=== PATIENT | female | born 1955 | race Caucasian/White ===

== ENCOUNTER 2016-03-08 10:28 | Emergency (ER) | payer MEDICARE, BC ==
[~2016-03-08] VITALS: Ht 165.1 cm; Wt 73.0 kg
[~2016-03-08 10:28] MED LIST changes: -KEPP10002 PO; -LEVO125T4 PO; -NAPR500 PO; -NORC5TAB PO; -WALKER/ADULT/FO1 MIS
[2016-03-08 10:33] VITALS: BP 99/69; PULSE 79; RESP 16; TEMP 99; O2SAT 99
[2016-03-08] MEDS ORDERED: KEPP10002 PO (10:59)
[2016-03-08] MEDS ORDERED: LEVO125T4 PO (10:59)
--- NOTE | 2016-03-08 11:14 | PD ---
HPI Chief Complaint: Injury Time Seen by Provider: 11:10 Travel History International Travel<30 days: No Contact w/Intl Traveler<30days: No Traveled to known affect area: No History of Present Illness HPI Patient comes in for evaluation of right ankle and foot pain that began yesterday after tripping fall. 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 Patient states that this caused her to stumble yesterday causing injury. Patient uncertain exactly if she twisted it landed on it or exactly what happened. Patient having throbbing aching pain in the lateral aspect of the right ankle and radiates proximally since yesterday. Patient states she took some Advil yesterday seemed to help some. Pain is worse with standing and palpation. Denies any numbness or tingling. Denies hitting her head or loss of consciousness. Patient states she has not ate anything yet today. 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) Cardiovascular Problems: No Chemotherapy: No COPD: No Cerebrovascular Accident: No Diabetes: No Diminished Hearing: No Endocrine: Yes Gastrointestinal Disorders: Yes (NAUSEA DUE TO NECK PAIN) Glaucoma: No Genitourinary: No Headaches: Yes Hepatitis: No Hiatal Hernia: No Hypertension: No Immune Disorder: No Musculoskeletal: Yes (CERVICAL & LUMBAR DISC PROBS., ARTHRITIS) Neurologic: Yes (SEIZURES (CONGENITAL)) Psychiatric: Yes (DEPRESSION) Reproductive: No Respiratory: Yes (SLEEP APNEA- NO C-PAP) Immunizations Current: Yes Migraines: Yes Radiation Therapy: No Seizures: Yes Sleep Apnea: Yes Thyroid Disease: Yes Tetanus Vaccination: < 5 Years Influenza Vaccination: Yes Menopausal: Yes Past Surgical History Abdominal Surgery: No AICD: No Body Medical Devices: CERVICAL HARDWARE Cardiac Surgery: No Ear Surgery: No Endocrine Surgery: No Eye Surgery: No Genitourinary Surgery: No Gynecologic Surgery: Yes (RAD. VULVECTOMY) Joint Replacement: No Neurologic Surgery: Yes (CERVICAL SPINE C5-6 FUSION X 2) Oral Surgery: Yes (WISDOM TEETH EXTRACT., TONSILLECTOMY) Pacemaker: No Thoracic Surgery: No Other Surgery: Yes (2 NECK AND LEG) Social History Alcohol Use: No Tobacco Use: Yes (1 PPD) Substance Use: No Allergies-Medications (Allergen,Severity, Reaction): Coded Allergies: Contrast Media (Verified Allergy, Severe, 03/08/16) Cipro (Verified Allergy, Intermediate, PT STATES SHE IS NOT ALLERGIC, 03/08) Reported Meds & Prescriptions Reported Meds & Active Scripts Active Walker/Adult/Folding (Device) 1 Mis Mis 1 Ea .ROUTE DIRECTED [place] (Hydrocodone-Acetaminophen) 5-325 mg Tab 1 Tab PO Q8HR PRN Naprosyn (Naproxen) 500 Mg Tab 500 Mg PO Q12HR PRN Reported Levothyroxine (Levothyroxine Sodium) 125 Mcg Tab 125 Mcg PO DAILY Keppra (Levetiracetam) 1,000 Mg Tab 1,000 Mg PO BID Review of Systems Except as stated in HPI: all other systems reviewed are Neg Physical Exam Narrative GENERAL: Well-developed, well nourished, in no acute distress, and non-ill appearing. SKIN: Warm and dry. Discoloration noted aspect right ankle and dorsal aspect of right foot. HEAD: Atraumatic. Normocephalic. EYES: Pupils equal and round. EOMI. No scleral icterus. No injection or drainage. ENT: No nasal bleeding or discharge. Mucous membranes pink and moist. NECK: Trachea midline. Supple. No nuclear rigidity. CARDIOVASCULAR: Dorsal pulses 2+ intact bilaterally. Capillary refill is 2 seconds. RESPIRATORY: No accessory muscle use. No respiratory distress. MUSCULOSKELETAL: No obvious deformities. No clubbing. No cyanosis. Soft tissue swelling noted right lateral ankle and dorsal aspect foot. Full range of motion. Ankle: Neagative anterior draw and Noble test. Negative Kady's sign. No laxity noted with passive inversion and eversion of BL ankles. Negative squeeze test. Pulses equal BL distal to injury. Capillary refill less than 2 seconds distal to injury and equal BL. Sensation equal BL 1st web space. FROM of toes distal to injury and equal BL. NV intact distal to injury and equal BL. Dorsal pulses equal BL. Patient reports tenderness to palpation of the lateral aspect of right ankle and dorsal aspect of right foot. NEUROLOGICAL: Awake and alert. No obvious cranial nerve deficits. Motor grossly within normal limits. Normal speech. PSYCHIATRIC: Appropriate mood and affect; insight and judgment normal. Data Data Last Documented VS Vital Signs Date Time Temp Pulse Resp B/P Pulse Ox O2 Delivery O2 Flow Rate FiO2 03/08/16 12:33 18 03/08/16 10:33 99.0 79 99/69 99 Orders Ankle, Complete (Lsy4csw) (03/08/16 ) Foot, Complete (Gal5icd) (03/08/16 ) Ice/Cold Pack (03/08/16 11:04) Acetamin-Hydrocod 325-5 Mg ([place] 5-325 (03/08/16 11:15) Splint Or Brace Apply/Monitor (03/08/16 11:41) MDM Medical Decision Making Medical Screen Exam Complete: Yes Emergency Medical Condition: Yes Differential Diagnosis Fracture, sprain, contusion, other Narrative Course The patient sustained a fracture. The distal extremity appears neurovascularly intact, without evidence of neurovascular injury nor compartment syndrome. Tendon exam also was intact. The effected limb was splinted. The patient was discharged on pain medication along with fracture and splint care instructions and given warnings for vascular compromise. The patient is to follow up with Orthopedics. The patient agrees with plan. Patient in no obvious distress upon re-evaluation. All pertinent Radiology result(s) discussed with patient/family. Patient was asked if they wanted to speak to my attending, which the patient did not wish to do at this time. Discussed patient with Dr. Mejia who is in agreement with plan of care and disposition. Any questions/concerns in reference to patient diagnosis/ condition discussed and clarified prior to patient's discharge. Reinforced sheer importance of close follow up with patient's primary physician or primary care clinic. Instructed patient to return to ED immediately, if symptoms return/ worsen. Pt showed understanding of above instructions. Further instructions and recommendations were detailed in discharge paperwork. Pt ambulated without difficulty out of ED at discharge. Diagnosis Primary Impression: Closed right fibular fracture Qualified Code: S82.64XA - Closed nondisplaced fracture of lateral malleolus of right fibula, initial encounter Referrals: Nawaf Luevano MD Patient Instructions: Ankle Fracture (ED), General Instructions, How to Choose and Use a Walker (GEN), Splint Care (DC) Additional Instructions: Follow-up with orthopedics in 24-48 hours for reevaluation. Apply ice to affected area 20 or as needed for pain and swelling. Go to [facility] to get your cam boot today. Use a walker to help support yourself to avoid additional falls.. Take all medication as prescribed. Return to the emergency department if symptoms get worse. Med/Other Pt SpecificInfo: Prescription(s) given Scripts Walker/Adult/Folding 1 Mis Mis #1 Ea .route As Directed Prov:Romi Mejia MD 03/08/16 Hydrocodone-Acetaminophen ([place])5-325 mg Tab1 Tab PO Q8HR PRN (PAIN GREATER THAN 7) #12 TAB Ref 0 Prov:Romi Mejia MD 03/08/16 Naproxen (Naprosyn)500 Mg [id number] Mg PO Q12HR PRN (PAIN SCALE 1 TO 10) #20 TAB Ref 0 Prov:Romi Mejia MD 03/08/16 Disposition: 01 DISCHARGE HOME Condition: Stable Tye Yepez Mar 08, 2016 11:14
[2016-03-08] MEDS ORDERED: ACETAMINOPHEN/HYDROcodone 325 MG/5 MG TAB PO ONE (11:15)
--- NOTE | 2016-03-08 11:44 | RADHPO ---
EXAM DATE/TIME: 03/08/2016 11:07 [facility] COMPARISON: No previous studies available for comparison. INDICATIONS : Right lateral ankle pain post fall. MEDICAL HISTORY : Seizures. TB. Sleep apnea. SURGICAL HISTORY : Tonsillectomy. Fusion, cervical. Right knee. Right rotator cuff. Left ankle. ENCOUNTER: Initial ACUITY: 1 day PAIN SCORE: 10/10 LOCATION: Right lateral ankle FINDINGS: 3 views of the right ankle demonstrate a fracture of the distal fibula with extension to the tibial p lateau. The ankle mortise is preserved. Moderate adjacent soft tissue edema. Normal bone mineralizati on. CONCLUSION: Distal fibula fracture with extension to the ankle mortise. The ankle mortise appears symmetric. Kelsey Stahl MD on March 08, 2016 at 11:42 Board Certified Radiologist. This report was verified electronically.
--- NOTE | 2016-03-08 11:50 | RADHPO ---
EXAM DATE/TIME: 03/08/2016 11:12 [facility] COMPARISON: No previous studies available for comparison. INDICATIONS : Right lateral foot/ankle pain post fall. MEDICAL HISTORY : Seizures. TB. Sleep apnea. SURGICAL HISTORY : Tonsillectomy. Fusion, cervical. Right knee. Right rotator cuff. Left ankle. ENCOUNTER: Initial ACUITY: 1 day PAIN SCORE: 10/10 LOCATION: Right lateral foot FINDINGS: 3 views of the right foot demonstrate a fracture of the distal fibula. Prior imaging of the ankle dem onstrate extension to the ankle mortise. The remainder of the osseous structures of the foot are unre markable without evidence of fracture. There is moderate dorsal soft tissue edema present. CONCLUSION: Fracture of the distal fibula. Kelsey Stahl MD on March 08, 2016 at 11:43 Board Certified Radiologist. This report was verified electronically.
[2016-03-08] MEDS ORDERED: NORC5TAB PO (12:05)
[2016-03-08] MEDS ORDERED: NAPR500 PO (12:05)
[2016-03-08] MEDS ORDERED: WALKER/ADULT/FO1 MIS (12:13)
[2016-03-08 12:33] VITALS: RESP 18
== END 2016-03-08 12:38 | disposition home or self-care (01) ==
LOC: PHEFT 10:28
DX: S82.831A Other fracture of upper and lower end of right fibula, initial encounter for closed fracture (principal); M21.372 Foot drop, left foot; R56.9 Unspecified convulsions; F32.9 Major depressive disorder, single episode, unspecified; W01.0XXA Fall on same level from slipping, tripping and stumbling without subsequent striking against object, initial encounter; Y93.9 Activity, unspecified; Y92.9 Unspecified place or not applicable; Y99.9 Unspecified external cause status
CPT/HCPCS: 29515; 73610; 73630; L2114

== ENCOUNTER → 2016-03-08 | Outpatient (CLI) | payer MEDICARE, BC ==
[~2016-03-08] MED LIST: B-COTAB41 PO; CHOL50006 PO; FIORIC PO; HYDR-3533 PO; KEPP10002 PO; LEVE500 PO; LEVO100T4 PO; LEVO125T4 PO; NAPR500 PO; NORC5TAB PO; WALKER/ADULT/FO1 MIS
== END ==
LOC: HORT 13:14
PROVIDERS: ATTEND Physician Assistant
DX: Z47.89 Encounter for other orthopedic aftercare (principal)
CPT/HCPCS: L2114

== ENCOUNTER 2017-01-15 15:49 | Emergency (ER) | payer MEDICARE, BC ==
[~2017-01-15] VITALS: Ht 165.1 cm; Wt 73.0 kg
[~2017-01-15 15:49] MED LIST changes: -B-COTAB41 PO; -CHOL50006 PO; -FIORIC PO; -HYDR-3533 PO; +KEPP10002 PO; -LEVE500 PO; -LEVO100T4 PO; +LEVO125T4 PO; +NAPR500 PO; +NORC5TAB PO; +WALKER/ADULT/FO1 MIS
[2017-01-15 16:05] VITALS: BP 128/76; PULSE 75; RESP 16; TEMP 99.2; O2SAT 97
[2017-01-15] MEDS ORDERED: BUTA1CAP PO (17:19)
--- NOTE | 2017-01-15 17:52 | PD ---
HPI Chief Complaint: Musculoskeletal Complaint Time Seen by Provider: 17:43 Travel History International Travel<30 days: No Contact w/Intl Traveler<30days: No Traveled to known affect area: No History of Present Illness HPI 61-year-old female presents to the emergency department for evaluation of left shoulder pain that occurred today [facility]. Patient has history of chronic shoulder and arm pain due to previous fractures. Of her, she states the pain is worse than normal and she noticed a bump to her shoulder or collarbone ice. Patient states the pain radiates down the arm. She denies any chest pain. The pain is worse with movement. Patient with history of musculoskeletal pain, epilepsy. She is currently on Keppra. She denies any other complaints at this time. Severity is moderate. Movement exacerbate pain. Resting, keeping arm still alleviates pain. Patient has history of left collar bone fracture as well as left humerus fracture. 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) Cardiovascular Problems: No Chemotherapy: No COPD: No Cerebrovascular Accident: No Diabetes: No Diminished Hearing: No Endocrine: Yes Gastrointestinal Disorders: Yes (NAUSEA DUE TO NECK PAIN) Glaucoma: No Genitourinary: No Headaches: Yes Hepatitis: No Hiatal Hernia: No Hypertension: No Immune Disorder: No Musculoskeletal: Yes (CERVICAL & LUMBAR DISC PROBS., ARTHRITIS) Neurologic: Yes (SEIZURES (CONGENITAL)) Psychiatric: Yes (DEPRESSION) Reproductive: No Respiratory: Yes (SLEEP APNEA- NO C-PAP) Immunizations Current: Yes Migraines: Yes Radiation Therapy: No Seizures: Yes Sleep Apnea: Yes Thyroid Disease: Yes Tetanus Vaccination: < 5 Years Influenza Vaccination: No ?: Not Menopausal: Yes Past Surgical History Abdominal Surgery: No AICD: No Body Medical Devices: CERVICAL HARDWARE Cardiac Surgery: No Ear Surgery: No Endocrine Surgery: No Eye Surgery: No Genitourinary Surgery: No Gynecologic Surgery: Yes (RAD. VULVECTOMY) Joint Replacement: No Neurologic Surgery: Yes (CERVICAL SPINE C5-6 FUSION X 2) Oral Surgery: Yes (WISDOM TEETH EXTRACT., TONSILLECTOMY) Pacemaker: No Thoracic Surgery: No Other Surgery: Yes (2 NECK AND LEG) Social History Alcohol Use: No Tobacco Use: Yes (1 PPD) Substance Use: No Allergies-Medications (Allergen,Severity, Reaction): Coded Allergies: diatrizoate meglumine (Unverified Allergy, Severe, 01/15/17) gadobenic acid (Unverified Allergy, Severe, 01/15/17) gadodiamide (Unverified Allergy, Severe, 01/15/17) gadoteridol (Unverified Allergy, Severe, 01/15/17) iodixanol (Unverified Allergy, Severe, 01/15/17) iohexol (Unverified Allergy, Severe, 01/15/17) ciprofloxacin (Unverified Allergy, Intermediate, PT STATES SHE IS NOT ALLERGIC, 01/15/17) Reported Meds & Prescriptions Reported Meds & Active Scripts Active Reported Levothyroxine (Levothyroxine Sodium) 125 Mcg Tab 125 Mcg PO DAILY Keppra (Levetiracetam) 1,000 Mg Tab 1,000 Mg PO BID Review of Systems Except as stated in HPI: all other systems reviewed are Neg Physical Exam Narrative GENERAL: Well-nourished, well-developed female patient, ambulatory. Afebrile. SKIN: Focused skin assessment warm/dry. HEAD: Normocephalic. Atraumatic. EYES: No scleral icterus. No injection or drainage. NECK: Supple, trachea midline. No JVD or lymphadenopathy. CARDIOVASCULAR: Regular rate and rhythm without murmurs, gallops, or rubs. Bilateral radial pulses are 2+. RESPIRATORY: Breath sounds equal bilaterally. No accessory muscle use. Lungs sounds are clear to auscultation. GASTROINTESTINAL: Abdomen soft, non-tender, nondistended. MUSCULOSKELETAL: No cyanosis, or edema. Patient has reproducible tenderness over left shoulder. Patient has limited flexion of left shoulder due to pain. She has a normal grasp strength in the left hand. She has full sensation distal left upper extremity. BACK: Nontender without obvious deformity. No CVA tenderness. Data Data Last Documented VS Vital Signs Date Time Temp Pulse Resp B/P (MAP) Pulse Ox O2 Delivery O2 Flow Rate FiO2 01/15/17 16:05 99.2 75 16 128/76 (93) 97 Orders Orders Shoulder, Complete (>2vws) (01/15/17 ) Humerus (Min 2vws) (01/15/17 ) MDM Medical Decision Making Medical Screen Exam Complete: Yes Emergency Medical Condition: Yes Medical Record Reviewed: Yes Interpretation(s) x-ray left shoulder CONCLUSION: 1. 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 2. 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 This was also present previously. 3. 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 Nothing acute. Differential Diagnosis Sprain versus fracture versus dislocation versus muscle strain Narrative Course 61-year-old female presents to the emergency department for evaluation of left shoulder pain after she lifted something off a shelf at [facility]. She has history of chronic left shoulder pain. This pain is easily reproduced with palpation and movement. She denies any chest pain. X-ray left shoulder and left humerus are ordered and pending. X-ray of the left shoulder shows stable nonunion displaced fracture proximal left humerus the care of medullary hood, nonunion fracture distal clavicle bone with bony remodeling, nothing acute. X-ray of the left humerus shows stable nonunion fractures the proximal left humerus and distal left clavicle, nothing acute. I discussed results with patient. Patient is instructed take Tylenol or ibuprofen [id number] as needed for pain. She is to return here for any acute worsening of symptoms. She verbalizes agreement and understanding. The patient was discharged in stable condition with instructions, including return instructions and follow up instructions. Diagnosis Primary Impression: Chronic left shoulder pain Referrals: Orthopedist call for appointment Patient Instructions: General Instructions Additional Instructions: Rotate ice/heat. [id number] Tylenol or ibuprofen as needed for pain. Follow-up with orthopedist if pain continues or worsens. Return to the emergency department for any acute worsening of symptoms. Med/Other Pt SpecificInfo: No Change to Meds Disposition: 01 DISCHARGE HOME Condition: Stable Katiana Jennings OCTAVIO Jan 15, 2017 17:52
--- NOTE | 2017-01-15 19:07 | RADRPT ---
EXAM DATE/TIME: 01/15/2017 17:57 [facility] COMPARISON: SHOULDER LEFT COMPLETE (>2VWS), November 28, 2015, 12:41. INDICATIONS : Left shoulder pain. MEDICAL HISTORY : None. SURGICAL HISTORY : humerus hood. ENCOUNTER: Initial ACUITY: 1 day PAIN SCORE: 6/10 LOCATION: Left shoulder. FINDINGS: Multiple view examination of the left shoulder demonstrates a nonunion fracture of the proximal left humerus with approximately 1/2 bone thickness medial displacement of the distal fragment. This is unc hanged. Stable nonunion fracture through the distal left clavicle as well. Nothing acute. CONCLUSION: 1. 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 2. 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 This was also present previous ly. 3. Nothing acute Eber Golden MD on January 15, 2017 at 19:02 Board Certified Radiologist. This report was verified electronically.
--- NOTE | 2017-01-15 19:08 | RADRPT ---
EXAM DATE/TIME: 01/15/2017 17:57 [facility] COMPARISON: HUMERUS LEFT (MIN 2VWS), December 27, 2014, 9:08. INDICATIONS : Left arm pain. MEDICAL HISTORY : None. SURGICAL HISTORY : Humerus hood. ENCOUNTER: Initial ACUITY: 1 day PAIN SCORE: 5/10 LOCATION: Left humerus. FINDINGS: Two view examination of the left humerus demonstrates stable nonunion fracture through the proximal l eft humeral diaphysis with approximately 1/2 bone thickness displacement of the distal fragment. Frac ture fragments are secured with a medullary hood and osseous screws. 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 No acute injury. 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 Nothing acute. Eber Golden MD on January 15, 2017 at 19:05 Board Certified Radiologist. This report was verified electronically.
== END 2017-01-15 19:40 | disposition home or self-care (01) ==
LOC: PHEFT 15:49
DX: M25.512 Pain in left shoulder (principal); G89.29 Other chronic pain; M79.602 Pain in left arm; E07.9 Disorder of thyroid, unspecified; G47.30 Sleep apnea, unspecified; F17.200 Nicotine dependence, unspecified, uncomplicated; Z86.59 Personal history of other mental and behavioral disorders; Z85.828 Personal history of other malignant neoplasm of skin; Z87.19 Personal history of other diseases of the digestive system; Z87.39 Personal history of other diseases of the musculoskeletal system and connective tissue; Z86.69 Personal history of other diseases of the nervous system and sense organs; Z87.81 Personal history of (healed) traumatic fracture; X58.XXXA Exposure to other specified factors, initial encounter
CPT/HCPCS: 73030; 73060; 99283

== ENCOUNTER 2017-02-18 13:09 | Emergency (ER) | payer MEDICARE, BC ==
[~2017-02-18] VITALS: Ht 165.1 cm; Wt 73.9 kg
[~2017-02-18 13:09] MED LIST changes: +BUTA1CAP PO; -NAPR500 PO; -NORC5TAB PO; -WALKER/ADULT/FO1 MIS
[2017-02-18 13:22] VITALS: BP 119/60; PULSE 70; RESP 18; TEMP 98.1; O2SAT 98
[2017-02-18] MEDS ORDERED: CHOL10008 PO (14:02)
[2017-02-18] MEDS ORDERED: ORPHENADRINE INJ 60 MG/2 ML AMP IM ONE (14:15)
[2017-02-18] MEDS ORDERED: KETOROLAC TROMETHAMINE 60 MG/2 ML (IM) VIAL IM ONE (14:15)
--- NOTE | 2017-02-18 14:20 | PD ---
HPI Chief Complaint: Musculoskeletal Complaint Time Seen by Provider: 14:09 Travel History International Travel<30 days: No Contact w/Intl Traveler<30days: No Traveled to known affect area: No History of Present Illness HPI 61-year-old female presents to the emergency department for evaluation of left low rib pain after she slipped and fell either Sunday night or Sunday morning. She states she slipped and fell and hit her ribs against a chair. She does not believe she fell to the ground. No head injury or LOC. She is on anticoagulants. Pain is 9 out of 10, sharp and aching, worse with deep breathing and movement, relieved with rest. She took ibuprofen this morning with little improvement. She does report history of rib fractures. Moderate severity. No associated symptoms. 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) Cardiovascular Problems: No Chemotherapy: No COPD: No Cerebrovascular Accident: No Diabetes: No Diminished Hearing: No Endocrine: Yes Gastrointestinal Disorders: Yes (NAUSEA DUE TO NECK PAIN) Glaucoma: No Genitourinary: No Headaches: Yes Hepatitis: No Hiatal Hernia: No Hypertension: No Immune Disorder: No Musculoskeletal: Yes (CERVICAL & LUMBAR DISC PROBS., ARTHRITIS) Neurologic: Yes (SEIZURES (CONGENITAL)) Psychiatric: Yes (DEPRESSION) Reproductive: No Respiratory: Yes (SLEEP APNEA- NO C-PAP) Immunizations Current: Yes Migraines: Yes Radiation Therapy: No Seizures: Yes Sleep Apnea: Yes Thyroid Disease: Yes Influenza Vaccination: No Menopausal: Yes Past Surgical History Abdominal Surgery: No AICD: No Body Medical Devices: CERVICAL HARDWARE Cardiac Surgery: No Ear Surgery: No Endocrine Surgery: No Eye Surgery: No Genitourinary Surgery: No Gynecologic Surgery: Yes (RAD. VULVECTOMY) Joint Replacement: No Neurologic Surgery: Yes (CERVICAL SPINE C5-6 FUSION X 2) Oral Surgery: Yes (WISDOM TEETH EXTRACT., TONSILLECTOMY) Pacemaker: No Thoracic Surgery: No Other Surgery: Yes (2 NECK AND LEG) Social History Alcohol Use: No Tobacco Use: Yes (<1 PPD) Substance Use: No Allergies-Medications (Allergen,Severity, Reaction): Coded Allergies: diatrizoate meglumine (Unverified Allergy, Severe, 02/18/17) gadobenic acid (Unverified Allergy, Severe, 02/18/17) gadodiamide (Unverified Allergy, Severe, 02/18/17) gadoteridol (Unverified Allergy, Severe, 02/18/17) iodixanol (Unverified Allergy, Severe, 02/18/17) iohexol (Unverified Allergy, Severe, 02/18/17) ciprofloxacin (Unverified Allergy, Intermediate, PT STATES SHE IS NOT ALLERGIC, 02/18/17) Reported Meds & Prescriptions Reported Meds & Active Scripts Active Reported Vitamin D3 (Cholecalciferol) 1,000 Unit Cap 1,000 Units PO DAILY Fioricet (Gdzikfzqto-Dglwreforbesc-Kwqimgle) 50-300-40 Mg Cap 1-2 Cap PO Q6H PRN Levothyroxine (Levothyroxine Sodium) 125 Mcg Tab 125 Mcg PO DAILY Keppra (Levetiracetam) 1,000 Mg Tab 1,000 Mg PO BID Review of Systems Except as stated in HPI: all other systems reviewed are Neg Physical Exam Narrative GENERAL: Well-nourished, well-developed female patient, ambulatory. Afebrile. SKIN: Focused skin assessment warm/dry. HEAD: Normocephalic. Atraumatic. EYES: No scleral icterus. No injection or drainage. NECK: Supple, trachea midline. No JVD or lymphadenopathy. CARDIOVASCULAR: Regular rate and rhythm without murmurs, gallops, or rubs. RESPIRATORY: Breath sounds equal bilaterally. No accessory muscle use. Lungs sounds are clear to auscultation GASTROINTESTINAL: Abdomen soft, non-tender, nondistended. No abdominal tenderness to palpation. MUSCULOSKELETAL: No cyanosis, or edema. Patient has tenderness over left lower ribs. BACK: Nontender without obvious deformity. No CVA tenderness. No midline spinal tenderness. Data Data Last Documented VS Vital Signs Date Time Temp Pulse Resp B/P (MAP) Pulse Ox O2 Delivery O2 Flow Rate FiO2 02/18/17 13:22 98.1 70 18 119/60 (79) 98 Orders Orders Ribs, Uni (W/Exp Cxr-Min 3vw) (02/18/17 ) Ketorolac Inj (Toradol Inj) (02/18/17 14:15) Orphenadrine Inj (Norflex Inj) (02/18/17 14:15) Resp Incentive Spirometry (02/18/17 ) MDM Medical Decision Making Medical Screen Exam Complete: Yes Emergency Medical Condition: Yes Medical Record Reviewed: Yes Interpretation(s) Last Impressions Ribs X-Ray 02/18/17 0000 Signed Impressions: Service Date/Time: Saturday, February 18, 2017 14:41 - CONCLUSION: Suspected subtle fracture deformities at the left sixth through eighth ribs. Martinez Ramirez MD Differential Diagnosis Rib contusion versus rib fracture versus pneumothorax versus pneumothorax Narrative Course 61-year-old female presents to the emergency department for evaluation of left rib pain after she slipped and fell, hitting her ribs against a chair. Patient drove herself here, therefore cannot give her narcotics at this time. She is given Toradol 60 mg IM and Norflex 60 mg IM. X-ray of the left ribs with chest is ordered and pending. X-ray of the left ribs with chest shows suspected subtle fracture deformities at the left sixth through eighth ribs. Patient is provided incentive spirometer to prevent underlying infection. She will be discharged prescription for [place] for pain. She is instructed to follow -up with her primary care physician. The patient was discharged in stable condition with instructions, including return instructions and follow up instructions. Diagnosis Primary Impression: Ribs, multiple fractures Qualified Codes: S22.42XA - Multiple fractures of ribs, left side, initial encounter for closed fracture Referrals: Primary Care Physician call for appointment Patient Instructions: General Instructions, Rib Fracture (ED) Additional Instructions: Take [place] as instructed as needed for pain. Caution this can make you drowsy do not drive after taking. Use incentive spirometer to encourage deep breathing to prevent underlying lung infection. Follow-up with your primary care physician. Return to the emergency department for any acute worsening of symptoms. Med/Other Pt SpecificInfo: Prescription(s) given Scripts Hydrocodone-Acetaminophen ([place]) 5 Mg-325 Mg Tab 1 TAB PO Q6H Y for PAIN, #16 TAB 0 Refills Prov: Katiana Jennings OCTAVIO 02/18/17 Disposition: 01 DISCHARGE HOME Condition: Stable DickKatiana Feb 18, 2017 14:20
--- NOTE | 2017-02-18 15:00 | RADRPT ---
EXAM DATE/TIME: 02/18/2017 14:41 [facility] COMPARISON: SHOULDER LEFT COMPLETE (>2VWS), January 15, 2017, 17:57. INDICATIONS : Fall, mid left anterior chest pain MEDICAL HISTORY : None. SURGICAL HISTORY : Spinal, shoulders ENCOUNTER: Initial ACUITY: 1 week PAIN SCORE: 5/10 LOCATION: Left anterior chest FINDINGS: There appear to be deformities at the sixth, seventh, and eighth left ribs anteriorly. These are conc erning for fractures. No other acute fracture is seen. No pneumothorax is seen. The lungs are clear. The heart size is normal. There is a chronic fracture deformity at the distal left clavicle. Surgical hardware is seen at the left proximal humerus and at the cervical spine. CONCLUSION: Suspected subtle fracture deformities at the left sixth through eighth ribs. Martinez Ramirez MD on February 18, 2017 at 14:56 Board Certified Radiologist. This report was verified electronically.
[2017-02-18] MEDS ORDERED: NORC5TAB PO (15:09)
== END 2017-02-18 15:25 | disposition home or self-care (01) ==
LOC: PHEFT 13:09
DX: S22.42XA Multiple fractures of ribs, left side, initial encounter for closed fracture (principal); M19.90 Unspecified osteoarthritis, unspecified site; F32.9 Major depressive disorder, single episode, unspecified; R56.9 Unspecified convulsions; F17.210 Nicotine dependence, cigarettes, uncomplicated; W01.190A Fall on same level from slipping, tripping and stumbling with subsequent striking against furniture, initial encounter
CPT/HCPCS: 71101; 94150; 96372; 99284; J1885; J2360